=== PATIENT | female | born 1980 | race Caucasian/White ===

== ENCOUNTER 2018-04-25 09:17 | Day surgery (SDC) | payer MEDICAID ==
[2018-04-22 13:00] VITALS: BMI 33.3
--- NOTE | 2018-04-25 10:54 | CP.SDSHP ---
Same Day Surgery H & P - History Proposed Procedure: US guided FNA of left thyroid nodule Pre-Op Diagnosis: left thyroid nodule - Allergies Allergies: Allergies No Known Allergies Allergy (Verified 04/22/18 13:00) - Physical Exam Mental Status: Alert & Oriented x3 - Impression Impression: Pt with a 2 cm left thyroid nodule. Plan US guided FNA of left thyroid nodule. Pt. Evaluated Today:Candidate for Anesthesia & Procedure: No - Date & Time Date: 04/25/18 Time: 10:30 Short Stay Discharge - Short Stay Discharge Admitting Diagnosis/Reason for Visit: DX: THYROID NODULE Disposition: HOME/ ROUTINE
--- NOTE | 2018-04-25 10:55 | PCM.SURG1 ---
Surgeon's Initial Post Op Note - Surgeon's Notes Surgeon: Italo Chaudhry MD Senior Administrative Assistant: NONE Type of Anesthesia: Local Pre-Operative Diagnosis: thyroid nodule Operative Findings: 2 cm mixed solid and cystic left thyroid nodule Post-Operative Diagnosis: thyroid nodule Operation Performed: US guided FNA of left thyroid nodule Specimen/Specimens Removed: 25 g FNA x 5 passes Estimated Blood Loss: EBL {In ML}: 1 Blood Products Given: N/A Drains Used: No Drains Post-Op Condition: Good Date of Surgery/Procedure: 04/25/18 Time of Surgery/Procedure: 10:54
--- NOTE | 2018-04-25 11:28 | US ---
PROCEDURE: Date of Procedure: 04/25/2018 PROCEDURE: 1. Ultrasound guided FNA of left thyroid nodule, CPT 20382 2. Ultrasound guidance for FNA, 84154 Medications: 3cc 1% Lidocaine HISTORY: Enlarged left thyroid nodule. TECHNIQUE: Following informed consent and procedure time-out, a limited ultrasound patient's neck confirmed the presence of a 2 cm complex left thyroid nodule which is predominantly solid. After the patient's neck was prepped and draped in the usual sterile fashion, the skin was anesthetized with 1% lidocaine. Ultrasound-guided fine needle aspiration was then performed of the dominant left thyroid nodule. A total of 5 passes were made into the nodule with 25 gauge needle under ultrasound guidance. The FNA specimen was sent for routine pathology and genetics. Post biopsy ultrasound showed no hematoma. IMPRESSION: Ultrasound-guided FNA of the dominant left thyroid nodule.
== END 2018-04-25 10:36 | disposition home or self-care (01) ==
LOC: C.SPRAD 09:17
PROVIDERS: ATTEND Radiology Vascular & Interventional Radiology
DX: E04.1 Nontoxic single thyroid nodule (principal)